=== PATIENT | female | born 1950 | race Caucasian/White ===

== ENCOUNTER 2020-12-19 07:28 | Emergency (ER) | payer MEDICARE, OTHER ==
[2020-12-19] MEDS ORDERED: Ketorolac 30 MG/ML SDV IM ONE (08:16)
--- NOTE | 2020-12-19 09:13 | EDM.PDOC ---
ED HPI GENERAL MEDICAL PROBLEM - General Chief Complaint: Back Pain or Injury Stated Complaint: MID BACK SPASMS Time Seen by Provider: 12/19/20 08:00 Source of Information: Reports: Patient History Limitations: Reports: No Limitations - History of Present Illness INITIAL COMMENTS - FREE TEXT/NARRATIVE: 70-year-old female woke up last night around midnight with a sudden right flank spasm and pain. Its been waxing and waning all night, seems to be worse with movement or deep breathing. No urinary symptoms. Onset: Sudden Duration: Hour(s): (12 hours ago) Location: Reports: Back Associated Symptoms: Reports: Malaise. Denies: Confusion, Chest Pain, Fever/Chills, Loss of Appetite, Shortness of Breath Right Back Pain Score (Numeric/FACES): 2 - Related Data Allergies Allergy/AdvReac Type Severity Reaction Status Date / Time oats Allergy Difficulty Verified 12/19/20 07:50 Breathing Penicillins Allergy Hives Verified 12/19/20 07:49 Home Meds: Home Meds Albuterol Sulfate [Proair Hfa] 2 puff IH Q4H PRN 12/19/20 [History] Citalopram [Citalopram HBr] 1 tab PO DAILY 12/19/20 [History] Estrogens, Conjugated [Premarin] 0.625 mg PO ASDIRECTED 12/19/20 [History] Maxide Hctz 37.5/25 1 tab PO DAILY 12/19/20 [History] lisinopriL [Lisinopril] 15 mg PO DAILY 12/19/20 [History] Past Medical History HEENT History: Reports: Impaired Vision Cardiovascular History: Reports: High Cholesterol, Hypertension Respiratory History: Reports: Asthma Gastrointestinal History: Reports: Irritable Bowel Syndrome [employer] History: Reports: Musculoskeletal History: Reports: Arthritis, Other (See Below) Other Musculoskeletal History: r hip pain Psychiatric History: Reports: Anxiety Endocrine/Metabolic History: Reports: Obesity/BMI 30+ - Infectious Disease History Infectious Disease History: Reports: Chicken Pox, Measles, Mumps - Past Surgical History HEENT Surgical History: Reports: Tonsillectomy Female Surgical History: Reports: Hysterectomy, Salpingo-Oophorectomy Social & Family History - Tobacco Use Tobacco Use Status *Q: Never Tobacco User Second Hand Smoke Exposure: No - Caffeine Use Caffeine Use: Reports: Coffee, Tea - Alcohol Use Days Per Week of Alcohol Use: 2 Number of Drinks Per Day: 2 Total Drinks Per Week: 4 - Recreational Drug Use Recreational Drug Use: No ED ROS GENERAL - Review of Systems Review Of Systems: See Below Constitutional: Denies: Fever, Chills HEENT: Reports: No Symptoms Respiratory: Denies: Shortness of Breath, Pleuritic Chest Pain Cardiovascular: Denies: Chest Pain GI/Abdominal: Reports: Nausea (Minimal nausea). Denies: Abdominal Pain, Vomiting : Reports: Flank Pain. Denies: Dysuria, Frequency, Urgency Musculoskeletal: Reports: Back Pain (Pain is fairly localized to the right posterior back and flank) Skin: Reports: No Symptoms. Denies: Rash Neurological: Reports: No Symptoms Psychiatric: Reports: No Symptoms ED EXAM, GENERAL - Physical Exam Exam: See Below Exam Limited By: No Limitations General Appearance: Alert, No Apparent Distress Head: Atraumatic Neck: Supple, Non-Tender Respiratory/Chest: No Respiratory Distress, Lungs Clear Cardiovascular: Regular Rate, Rhythm GI/Abdominal: Soft, Non-Tender Back Exam: Other (No CVA tenderness but she does have some palpation tenderness in the right lower thoracic spine, para thoracic muscles.). No: CVA Tenderness (R), CVA Tenderness (L) Extremities: Normal Inspection Neurological: Alert, Oriented Course - Vital Signs Last Recorded V/S: Last Vital Signs Temp 97.3 F 12/19/20 08:02 Pulse 67 12/19/20 08:02 Resp 16 12/19/20 08:02 BP 170/83 H 12/19/20 08:02 Pulse Ox 97 12/19/20 08:02 - Orders/Labs/Meds Meds: Medications Discontinued Medications Generic Name Dose Route Start Last Admin Trade Name Tyrellq PRN Reason Stop Dose Admin Ketorolac Tromethamine 30 mg 12/19/20 08:16 12/19/20 08:20 Ketorolac 30 Mg/Ml Sdv IM 12/19/20 08:17 30 mg ONETIME ONE Administration - Re-Assessments/Exams Free Text/Narrative Re-Assessment/Exam: 12/19/20 10:12 CT of the abdomen pelvis without contrast to assess for renal stone was ordered. Results are below IMPRESSION: 1. There is no obstructive urolith, hydronephrosis, or perinephric edema. 2. Small pericardial effusion. 3. Colonic diverticulosis. No evidence for diverticulitis. 4. No abdominal or pelvic lymphadenopathy. Prior to the CT the patient was given 30 mg of IM Toradol, responded very well to this. She had much less subjective pain. Findings of the CT were discussed with the patient, she was discharged with fifteen doses of Flexeril to take along with anti-inflammatories for the next few days and will increase activity as tolerated. Departure - Departure Time of Disposition: 10:01 Disposition: Home, Self-Care 01 Clinical Impression: Spasm of back muscles - Discharge Information Instructions: Muscle Cramps and Spasms, [id number] Referrals: PCP,None [Primary Care Provider] - Forms: ED Department Discharge Care Plan Goals: Continue with ibuprofen on a regular basis, increase activity as tolerated and use muscle relaxers up to 3 times a day if needed. Consider rechecking in 4 to 5 days if not improving satisfactorily, or return anytime if worsening such as fever, shortness of breath or increased pain. Sepsis Event Note (ED) - Evaluation Sepsis Screening Result: No Definite Risk - Focused Exam Vital Signs: Vital Signs Temp Pulse Resp BP Pulse Ox 12/19/20 08:02 97.3 F 67 16 170/83 H 97 12/19/20 07:48 97.3 F 67 16 170/83 H 97
--- NOTE | 2020-12-19 09:32 | CRLCT ---
For Patients: As a result of the Century Cures Act, medical imaging exams and procedure reports are released immediately into your electronic medical record. You may view this report before your referring provider. If you have questions, please contact your health care provider. INDICATION: right flank pain HISTORY: Right flank pain. COMPARISON: None. TECHNIQUE: CT of the abdomen and pelvis. No intravenous contrast. Coronal/sagittal reconstruction images. FINDINGS: Lung bases: Small pericardial effusion, image 14, series 2. There is no pleural effusion. Linear atelectasis in the right middle lobe and right lower lobe. Similar findings are seen at the lung bases. There is no acute airspace disease or basilar pneumothorax. Abdomen/pelvis: No solid hepatic mass. Hepatic morphology is normal. No perihepatic ascites. No radiopaque gallstone. No adrenal mass. Spleen size is normal. There is no pancreatic mass or pancreatic duct dilation. There is no glandular atrophy. There is no hydronephrosis. There is no perinephric fluid collection. No obstructive urolith is seen. There is no free air. There is colonic diverticulosis. There is no evidence for diverticulitis. There is no pneumatosis or portal venous gas. There is no transition point. There is no pelvic sidewall lymphadenopathy. The retroperitoneum and gastrohepatic ligament are normal. The appendix is likely present on image 93 of series 2. It measures 5 millimeters in luminal dimension. There is no calcified appendicolith. Degenerative changes at the symphysis pubis. Small sclerotic lesion in the anterior column, left acetabulum, likely a benign bone island. No suspicious bone lesions are seen. Vertebral body heights are maintained on sagittal reconstruction images. IMPRESSION: 1. There is no obstructive urolith, hydronephrosis, or perinephric edema. 2. Small pericardial effusion. 3. Colonic diverticulosis. No evidence for diverticulitis. 4. No abdominal or pelvic lymphadenopathy. Dictated by Ino Marks MD @ 12/19/2020 9:30:30 AM Please note that all CT scans at this facility use dose modulation, iterative reconstruction, and/or weight-based dosing when appropriate to reduce radiation dose to as low as reasonably achievable. Dictated by: Ino Marks MD @ 12/19/2020 09:30:50 (Electronically Signed)
== END 2020-12-19 10:01 | disposition home or self-care (01) ==
LOC: JP.ED 07:28
DX: M62.830 Muscle spasm of back (principal); E78.00 Pure hypercholesterolemia, unspecified; I10 Essential (primary) hypertension; E66.9 Obesity, unspecified; Z68.30 Body mass index [BMI] 30.0-30.9, adult; Z79.899 Other long term (current) drug therapy; Z88.0 Allergy status to penicillin; Z91.09 Other allergy status, other than to drugs and biological substances
CPT/HCPCS: 74176; 96372; 99284; J1885